=== PATIENT | female | born 1985 | race Caucasian/White ===

== ENCOUNTER → 2022-02-05 | Outpatient (CLI) | payer OTHER ==
[2022-02-05 17:46] LABS: BASO % 0.2 % (0.0-1.0); EOS # 0.1 10^3/uL (0.0-0.5); EOS % 0.7 % (0.0-3.0); HEMATOCRIT 40.3 % (36.0-47.0); HEMOGLOBIN 13.4 g/dl (12.0-15.5); LYMPH # 2.3 10^3/uL (1.5-5.0); MEAN CORPUSCULAR HEMOGLOBIN 27.9 pg (27.0-33.0); MEAN CORPUSCULAR HGB CONC 33.3 g/dl (32.0-36.5); MONO # 0.7 10^3/uL (0.0-0.8); MONO % 7.5 % (2.0-8.0); NEUTROPHILS % 66.3 % (36.0-66.0); PLATELET COUNT, AUTOMATED 227 10^3/uL (150-450)
[2022-02-05 19:09] LABS: HEPATITIS C VIRUS ABY INDEX 0.2 INDEX (<0.8); HIV 1&2 SCREEN CENTAUR NEGATIVE (NEGATIVE)
[2022-02-05 20:00] LABS: GC DNA AMPLIFICATION NEGATIVE (NEGATIVE)
== END ==
LOC: M PLALAB 13:53
PROVIDERS: ATTEND Specialist
DX: Z34.81 Encounter for supervision of other normal pregnancy, first trimester (principal); Z3A.00 Weeks of gestation of pregnancy not specified

== ENCOUNTER → 2022-04-15 | Outpatient (CLI) | payer OTHER | LOC: M WHC 12:52 | PROVIDERS: ATTEND Obstetrics & Gynecology | DX: Z36.3 Encounter for antenatal screening for malformations (principal); Z3A.22 22 weeks gestation of pregnancy ==

== ENCOUNTER → 2022-05-18 | Outpatient (CLI) | payer OTHER | LOC: M WHC 11:10 | PROVIDERS: ATTEND Obstetrics & Gynecology | DX: O43.122 Velamentous insertion of umbilical cord, second trimester (principal) ==

== ENCOUNTER → 2022-06-16 | Outpatient (CLI) | payer OTHER, SELFPAY ==
[2022-06-16 17:22] LABS: HEMOGLOBIN 11.4 g/dl (12.0-15.5); MEAN CORPUSCULAR HEMOGLOBIN 27.6 pg (27.0-33.0); MEAN CORPUSCULAR HGB CONC 32.6 g/dl (32.0-36.5); MEAN CORPUSCULAR VOLUME 84.7 fl (80.0-96.0); PLATELET COUNT, AUTOMATED 199 10^3/uL (150-450); RED BLOOD COUNT 4.13 10^6/uL (4.00-5.40); WHITE BLOOD COUNT 12.3 10^3/uL (4.0-10.0)
== END ==
LOC: M PLALAB 14:32
PROVIDERS: ATTEND Obstetrics & Gynecology
DX: O34.522 Maternal care for prolapse of gravid uterus, second trimester (principal)

== ENCOUNTER → 2022-07-28 | Outpatient (REF) | payer OTHER | LOC: M SFHCWAGY 17:07 | PROVIDERS: ATTEND Specialist | DX: Z34.83 Encounter for supervision of other normal pregnancy, third trimester (principal) ==

== ENCOUNTER 2022-08-16 13:21 | Inpatient (IN) | payer OTHER ==
[2022-08-16] VITALS (7 sets, daily range): BP systolic 108–138; BP diastolic 71–96
[~2022-08-16] VITALS: Ht 160 cm; Wt 79.1 kg
[2022-08-16] MEDS ORDERED: CARBOPROST TROMETHAMINE 250 MCG/ML AMP IM PRN (13:35)
[2022-08-16] MEDS ORDERED: TRANEXAMIC ACID INJection 1,000 MG in NS 100 ML IV PRN (13:35)
[2022-08-16] MEDS ORDERED: OXYTOCIN INJ 10 UNITS/ML VIAL (J2590) IM PRN (13:35)
[2022-08-16] MEDS ORDERED: OXYTOCIN DRIP 30 UNITS in IV 1 EA IV PRN (13:35)
[2022-08-16] MEDS ORDERED: LIDOCAINE 1% MDV 20ML VIAL INFIL PRN (13:35)
[2022-08-16] MEDS ORDERED: METHYLERGONOVINE MALEATE 0.2 MG/ML VIAL (J2210) IM PRN (13:35)
[2022-08-16] MEDS ORDERED: TUMS750C5 PO (13:51)
[2022-08-16] MEDS ORDERED: MULTTAB20 PO (13:51)
[2022-08-16] MEDS ORDERED: HOME MED LIST COMPLETE! XX SCH (13:55)
[2022-08-16 14:51] LABS: HEMATOCRIT 34.9 % (36.0-47.0); HEMOGLOBIN 11.5 g/dl (12.0-15.5); MEAN CORPUSCULAR HEMOGLOBIN 25.4 pg (27.0-33.0); PLATELET COUNT, AUTOMATED 192 10^3/uL (150-450); RED BLOOD COUNT 4.53 10^6/uL (4.00-5.40); WHITE BLOOD COUNT 9.4 10^3/uL (4.0-10.0)
[2022-08-16] MEDS ORDERED: miSOPROStol 50MCG 1/2 TABLET PO ONE (19:05)
[2022-08-16] MEDS ORDERED: OXYTOCIN DRIP 30 UNITS in IV 1 EA IV SCH (22:35)
[2022-08-17] VITALS (33 sets, daily range): BP systolic 98–145; BP diastolic 55–100
[2022-08-17] MEDS: LR 1,000 ML IV SCH ×2 (03:58→06:46)
[2022-08-17] MEDS ORDERED: LACTATED RINGER'S 1000 ML IV ONE (04:20)
[2022-08-17] MEDS ORDERED: FENTANYL 2MCG/ML ROPIVACAINE 0.2% IN 0.9% NACL 100ML IVBAG As Ordered ONE (05:03)
[2022-08-17] MEDS ORDERED: diphenhydrAMINE 50MG/ML VIAL (J1200) IV PRN (05:25)
[2022-08-17] MEDS ORDERED: FENTANYL/ROPIVACAINE/NACL BAG 100 ML EPIDURAL SCH (05:25)
[2022-08-17] MEDS ORDERED: LR 500 ML IV PRN (05:25)
[2022-08-17] MEDS ORDERED: EPIDURAL/PCA KEYS XX PRN (05:25)
[2022-08-17] MEDS ORDERED: NALOXONE INJ 0.4MG/1ML VIAL (J2310 PER 1MG) IV PRN (05:25)
[2022-08-17] MEDS ORDERED: ONDANSETRON 4MG 2ML VIAL IV PRN (05:25)
[2022-08-17] MEDS ORDERED: ePHEDrine SULFATE 25 MG/5 ML(5MG/ML) SYRINGE IVP PRN (05:25)
[2022-08-17 13:11] LABS: CORD GAS ABE V -3.3; CORD GAS HCO3 V 19.4 MEQ/L; CORD GAS O2 SAT V 69.5 %; CORD GAS PCO2 V 28.5 mmHg; CORD GAS PH V 7.451 UNITS; CORD GAS PO2 V 26.2 mmHg; CORD GAS SBC V 21.1 MEQ/L; CORD GAS TCO2 V 20.3 MEQ/L
[2022-08-17 13:12] LABS: CORD GAS ABE A -6.4; CORD GAS HCO3 A 20.9 MEQ/L; CORD GAS O2 SAT A 45.3 %; CORD GAS PCO2 A 48.2 mmHg; CORD GAS PH A 7.255 UNITS; CORD GAS PO2 A 21.8 mmHg; CORD GAS SBC A 18.2 MEQ/L; CORD GAS TCO2 A 22.4 MEQ/L
[2022-08-17] MEDS ORDERED: IBUPROFEN 800 MG TAB PO PRN (14:25)
[2022-08-17] MEDS ORDERED: RHOGAM 300 MCG (1500 IU) INJ (J2790) IM SCH (14:25)
[2022-08-17] MEDS ORDERED: OXYTOCIN DRIP 30 UNITS in IV 1 EA IV SCH (14:25)
[2022-08-17] MEDS ORDERED: DOCUSATE SODIUM 100MG CAPSULE PO PRN (14:25)
[2022-08-17] MEDS ORDERED: ANUSOL HC CREAM 30GM TOP PRN (14:25)
[2022-08-17] MEDS ORDERED: ACETAMINOPHEN TAB 650MG DOSE (2X325MG) PO PRN (14:25)
[2022-08-17] MEDS ORDERED: ACETAMINOPHEN 500 MG TAB PO PRN (14:25)
[2022-08-17] MEDS ORDERED: DIBUCAINE 1% OINTMENT 30GM TOP PRN (14:25)
[2022-08-17] MEDS ORDERED: METHYLERGONOVINE MALEATE 0.2 MG TAB PO PRN (14:25)
[2022-08-17] MEDS ORDERED: MOM 30ML SUSPENSION UDC PO PRN (14:25)
[2022-08-17] MEDS ORDERED: IBUPROFEN 600MG TAB PO PRN (14:25)
[2022-08-18 06:07] VITALS: BP 114/65
[2022-08-18] MEDS ORDERED: PRENATAL VITAMINS CHEWABLE TABLET PO SCH (09:00)
[2022-08-19] MEDS ORDERED: MEASLES,MUMPS,RUBELLA VACCINE INJ (MMR-II) (90707) SC.IMMUN ONE (09:00)
== END 2022-08-18 18:00 | disposition home or self-care (01) | DRG 560 ==
LOC: M LDI 13:21 → M OBS 08-17 15:03
PROVIDERS: ADMIT Advanced Practice Midwife; ATTEND Obstetrics & Gynecology
PROC: 3E0P7GC Introduction of Other Therapeutic Substance into Female Reproductive, Via Natural or Artificial Opening (ICD-10-PCS; 2022-08-16)
PROC: 10E0XZZ Delivery of Products of Conception, External Approach (ICD-10-PCS; principal; 2022-08-17)
DX: O69.89X0 Labor and delivery complicated by other cord complications, not applicable or unspecified (principal); O34.593 Maternal care for other abnormalities of gravid uterus, third trimester; Z3A.39 39 weeks gestation of pregnancy; O09.523 Supervision of elderly multigravida, third trimester; Z37.0 Single live birth

== ENCOUNTER → 2025-10-21 | Outpatient (CLI) | payer OTHER ==
[~2025-10-21] MED LIST: MULTTAB20 PO; TUMS750C5 PO
== END ==
LOC: M WHC 13:14
PROVIDERS: ATTEND Nurse Practitioner Family
DX: R92.0 Mammographic microcalcification found on diagnostic imaging of breast (principal); R92.321 Mammographic fibroglandular density, right breast